=== PATIENT | male | born 1965 | race Caucasian/White ===

== ENCOUNTER 2023-11-09 01:24 | Day surgery (SDC) | payer OTHER, SELFPAY ==
[2023-11-01 10:37] VITALS: BMI 25.9
--- NOTE | 2023-11-07 10:11 | SUR.PREOP ---
Patient called regarding upcoming procedure. Reviewed preop instructions, appointment times, and procedure prep.
[2023-11-09 10:00] VITALS: BP 123/73; PULSE 80; RESP 16; TEMP 36.1; O2SAT 100; BMI 25.0
[2023-11-09] MEDS: LACTATED RINGERS 1,000 ML 150 ML IV CONT (10:26)
--- NOTE | 2023-11-09 10:59 | P.PNAN_ITS ---
Anes - Initial Pre Proc Eval Procedure: Operation Date: 11/09/23 11:30 Proposed Procedures p Colonoscopy - Dwayne Gibson MD Date/Time: 11/09/23 10:59 Surgeon: Dwayne Gibson MD Pre Op Diagnosis: Other fecal abnormalities Patient Data Age: 58 Gender: M Height: 1.7 m Weight: 72.5 kg Last Vital Signs Temp 97.0 F L 11/09/23 10:00 Pulse 80 11/09/23 10:00 Resp 16 11/09/23 10:00 BP 123/73 11/09/23 10:00 Pulse Ox 100 11/09/23 10:00 O2 Del Method Room Air 11/09/23 10:00 Allergies Allergy/AdvReac Type Severity Reaction Status Date / Time hydrocodone AdvReac Severe Nausea and Verified 11/09/23 10:09 Vomiting Home Medications Medication Instructions Recorded Confirmed Type levothyroxine 137 mcg tablet 137 mcg PO DAILY #90 tabs 10/10/23 11/09/23 Rx Patient hx anesthesia problems: none Family hx anesthesia problems: none Results Review: All pre-operative results and documents have been reviewed as part of the pre- operative evaluation. [facility] Past Medical History Medical History Encounter for other specified surgical aftercare Non-recurrent bilateral inguinal hernia without obstruction or gangrene Family History Family History Father Cancer Mother Cancer Diabetes mellitus Sibling Cancer Diabetes mellitus Other Family history of malignant neoplasm Social History Social History Smoking packs per day: 1 Smoking cigarettes per day: 20.0 Smoking status: Current every day smoker Tobacco type: cigarettes Second hand tobacco smoke exposure: No Alcohol intake: current Drinks per week: 2 Alcohol use details: occasional; bourbon Substance use: never Substance use type: does not use Living arrangements: with family Occupation/Education: occupation 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 [employer] Gender identity (if verbalized by the patient): Male Sexual Orientation (if Verbalized by the Patient): Straight or Heterosexual Spiritual care concerns: No Anes - Eval Final PreProcedure Day of Procedure 11/09/23 10:59 Patient weight: normal Heart: regular rate and rhythm Lungs: clear to auscultation Airway: Mallampati scale class II Neurological: alert and oriented Last oral intake: >/= 8 hours ASA classification: II Emergent: no Anesthetic plan: proceed Anesthesia type and monitoring: general GIVS and standard monitoring Results Review: All pre-operative results and documents have been reviewed as part of the pre- operative evaluation. Informed Consent: The patient's anesthetic plan and its attendant risks and benefits were discussed with the patient/family/POA. Questions were solicited and answers provided to the satisfaction of the patient/family/POA.
--- NOTE | 2023-11-09 11:08 | PM.HPGS ---
History of Present Illness History of Present Illness Consent: Risks, benefits, and alternatives have been discussed and questions answered. Patient agrees to proceed with procedure. Chief complaint: Other fecal abnormalities Narrative: Valdo Whittington is a 58 year old male here for first colonoscopy, noted urgency and loose stools for ~ 8 months Review of Systems Review of Systems: All systems reviewed & are unremarkable except as noted in HPI and below PMFSH Past Medical History Medical History (Updated 11/09/23 @ 11:09 by Dwayne Gibson MD) Encounter for other specified surgical aftercare Loose stools Non-recurrent bilateral inguinal hernia without obstruction or gangrene Family History Family History Father Cancer Mother Cancer Diabetes mellitus Sibling Cancer Diabetes mellitus Other Family history of malignant neoplasm Social History Social History Smoking packs per day: 1 Smoking cigarettes per day: 20.0 Smoking status: Current every day smoker Tobacco type: cigarettes Second hand tobacco smoke exposure: No Alcohol intake: current Drinks per week: 2 Alcohol use details: occasional; bourbon Substance use: never Substance use type: does not use Living arrangements: with family Occupation/Education: occupation 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 [employer] Gender identity (if verbalized by the patient): Male Sexual Orientation (if Verbalized by the Patient): Straight or Heterosexual Spiritual care concerns: No Meds Home Medications and Allergies Home Medications Medication Instructions Recorded Confirmed Type levothyroxine 137 mcg tablet 137 mcg PO DAILY #90 tabs 10/10/23 11/09/23 Rx Allergies Allergy/AdvReac Type Severity Reaction Status Date / Time hydrocodone AdvReac Severe Nausea and Verified 11/09/23 10:09 Vomiting Vital Signs Vital Signs - 24 hr 11/09/23 10:00 Temperature 97.0 F L Pulse Rate 80 Respiratory Rate 16 Blood Pressure 123/73 Pulse Oximetry 100 Oxygen Delivery Room Air Exam Const: General: comfortable and no acute distress HENMT: Face/Nose/Sinus: Normal nares present Eyes: General: appearance normal, both eyes and all related structures Neck: Neck: no JVD Resp: Auscultation: clear to auscultation bilaterally Cardio: Rate: regular rate Rhythm: regular rhythm GI: Inspection: non-distended GI Palp: Yes Soft to palpation Skin: General skin exam: normal color Neuro: General: gait normal Speech: normal speech Extrem: General: normal to inspection Psych: Mental Status: mental status grossly normal Assessment and Plan Assessment and plan (1) Loose stools: Code(s): R19.5 - Other fecal abnormalities Status: Acute Assessment and Plan: colonoscopy
[2023-11-09 11:26] VITALS: BP 103/72; PULSE 80; RESP 15; O2SAT 99
[2023-11-09 11:36] VITALS: BP 112/75; PULSE 79; RESP 20; O2SAT 100
[2023-11-09 11:46] VITALS: BP 122/81; PULSE 76; RESP 14; O2SAT 100
== END 2023-11-09 11:52 | disposition home or self-care (01) ==
PROVIDERS: PCP Nurse Practitioner Family; Visit Provider Internal Medicine Gastroenterology
PROC: 0DJD8ZZ Inspection of Lower Intestinal Tract, Via Natural or Artificial Opening Endoscopic (ICD-10-PCS; CPT 45378; principal; 2023-11-09 11:30)
DX: K63.5 Polyp of colon (principal); K64.8 Other hemorrhoids; F17.210 Nicotine dependence, cigarettes, uncomplicated
CPT/HCPCS: 45385; 45380; 88305; J2704; J7120

== ENCOUNTER 2025-01-23 08:15 | Outpatient (CLI) | payer OTHER, SELFPAY ==
--- NOTE | 2025-01-23 08:43 | ECHO_ITS ---
Patient Info Name: Valdo Whittington Age: 59 years : 1965 Gender: Male Ht: 67 in Wt: 165 lbs BSA: 1.89 m2 HR: 76 bpm BP: 133 / 90 mmHg Technical Quality: Good Exam Date: 01/23/2025 8:52 AM Patient Status: O Admit Date: 01/23/2025 Exam Type: CA echo doppler color flow Complete two-dimensional, color flow and Doppler transthoracic echocardiogram is performed. Strain analysis performed. Ui Ux Engineer: Felipa Eaton Attending Provider: Alessandra Lujan Summary 1. Complete two-dimensional, color flow and Doppler transthoracic echocardiogram is performed. 2. Left ventricular chamber dimension is normal. 3. Left ventricular systolic function is normal, estimated at 60-65. 4. The left ventricular diastolic function is normal. 5. Global longitudinal strain is normal at -18.0%. 6. E/e' 7 is not elevated. 7. There is trace aortic valve regurgitation. 8. There is trace mitral valve regurgitation. 9. There is trace tricuspid valve regurgitation. 10. No pulmonary hypertension, estimated pulmonary arterial systolic pressure is 28 mmHg. 11. There is trace pulmonic regurgitation. Left Ventricle E/e' 7 is not elevated. Left ventricular chamber dimension is normal. Left ventricular systolic function is normal, estimated at 60-65. The left ventricular diastolic function is normal. Global longitudinal strain is normal at -18.0%. Right Ventricle Right ventricular chamber dimension is normal. Right ventricular systolic function is normal. Left Atria Left atrial chamber dimension is normal. Right Atria Right atrial chamber dimension is normal. Aortic Valve The aortic valve is trileaflet. There is no aortic valve stenosis. There is trace aortic valve regurgitation. Pulmonic Valve There is trace pulmonic regurgitation. Mitral Valve There is no mitral valve stenosis. There is trace mitral valve regurgitation. No mitral valve prolapse. Tricuspid Valve There is trace tricuspid valve regurgitation. No pulmonary hypertension, estimated pulmonary arterial systolic pressure is 28 mmHg. Pericardium/Pleural There is no pericardial effusion. Inferior Vena Cava Normal inferior vena cava with >50% collapse upon inspiration consistent with normal right atrial pressure, 5 mmHg. Aorta The aortic root size at the sinus of Valsalva is normal. Left Ventricular Outflow Tract Name Value Normal LVOT 2D LVOT Diameter 2.1 cm LVOT Doppler LVOT Peak Velocity 123 cm/s LVOT Peak Gradient 6 mmHg LVOT Mean Gradient 3 mmHg LVOT VTI 23 cm LVOT VTI/AV VTI Ratio 0.9 LVOT Stroke Volume 80 ml LVOT CO 6.0 l/min LVOT CI 3.1 l/min/m2 Pulmonic Valve Name Value Normal RVOT Doppler RVOT Peak Velocity 71 cm/s RVOT Peak Gradient 2 mmHg PV Doppler PV Peak Velocity 107 cm/s PV Peak Gradient 5 mmHg Mitral Valve Name Value Normal MV Diastolic Function MV E Peak Velocity 70 cm/s MV A Peak Velocity 66 cm/s MV E/A 1.1 MV Decel Time (PW) 174 ms Tricuspid Valve Name Value Normal TV Regurgitation Doppler TR Peak Velocity 241 cm/s TR Peak Gradient 23 mmHg Estimated PAP/RSVP RA Pressure 5 mmHg <=5 PA Systolic Pressure 28 mmHg <36 RV Systolic Pressure 28 mmHg <36 Aorta Name Value Normal Ascending Aorta Ao Root Diameter (MM) 2.8 cm Ao Root Diam Index (MM) 1.5 cm/m2 Aortic Valve Name Value Normal AV Doppler AV Peak Velocity 133 cm/s AV Peak Gradient 7 mmHg AV Mean Gradient 4 mmHg AV VTI 26 cm AV Area (Cont Eq VTI) 3.1 cm2 >=3.0 AV Area (Cont Eq Neri) 3.3 cm2 AV DI (Neri) 0.92 AV Regurgitation 2D LVOT Area 3.5 cm2 Ventricles Name Value Normal LV Dimensions 2D/MM IVS Diastolic Thickness (2D) 0.6 cm 0.6-1.0 IVS Diastole Thickness (MM) 0.9 cm 0.6-1.0 LVID Diastole (2D) 4.0 cm 4.2-5.8 LVID Diastole (MM) 4.9 cm 4.2-5.8 LVIW Diastolic Thickness (2D) 0.9 cm 0.6-1.0 LVIW Diastolic Thickness (MM) 0.7 cm 0.6-1.0 LVID Systole (2D) 2.5 cm 2.5-4.0 LVID Systole (MM) 3.3 cm 2.5-4.0 LVOT Diameter 2.1 cm LV Mass (2D Cubed) 90.10 g 88.00-224.00 LV Mass Index (2D Cubed) 48 g/m2 49-115 Relative Wall Thickness (2D) 0.47 <=0.42 LV Mass (MM Cubed) 134.10 g 88.00-224.00 LV Mass Index (MM Cubed) 71 g/m2 49-115 Relative Wall Thickness (MM) 0.29 LV Fractional Shortening/Ejection Fraction 2D/MM LV Fractional Shortening (2D) 38 % 25-43 LV Fractional Shortening (MM) 34 % 25-43 LV EF (MM Teichholz) 63 % LV EF (2D Teichholz) 69 % LV Diastolic Volume (4C MOD) 65 ml LV EF (4C MOD) 63 % LV Diastolic Volume (2C MOD) 76 ml LV EF (2C MOD) 57 % LV Diastolic Volume (BP MOD) 71 ml 62-150 LV Diastolic Volume Index (BP MOD) 37 ml/m2 34-74 LV Systolic Volume (BP MOD) 28 ml 21-61 LV Systolic Volume Index (BP MOD) 15 ml/m2 11-31 LV EF (BP MOD) 60 % 52-72 LV Diastolic Length (4C) 8.2 cm LV Systolic Length (4C) 6.8 cm LV Stroke Volume (4C MOD) 40 ml Atria Name Value Normal LA Dimensions LA Dimension (MM) 3.5 cm 3.0-4.0 LA Volume (4C A-L) 42 ml LA Volume (BP A-L) 46 ml RA Dimensions RA Systolic Major [place] Length (4C) 4.6 cm 2.1-2.7 RA Area (4C) 14.8 cm2 <=18.0 EchoPAC Name Value Normal AutoEF LVCO_BiP_Q (Qsys3XUV) 4.3 l/min LVEF_BiP_Q (Dvnm2JNN) 54 % LVSV_BiP_Q (Gocp4LQE) 58 ml LVVED_BiP_Q (Xzjc5AHP) 107 ml LVVES_BiP_Q (Oxhc3QYR) 49 ml HR_4Ch_Q (Keed3DXI) 75 bpm LVCO_4Ch_Q (Lqxc1UAY) 3.7 l/min LVEF_4Ch_Q (Ksej8MGD) 54 % LVLd_4Ch_Q (Avxo7YAD) 8.6 cm LVLs_4Ch_Q (Bosc2DZK) 7.2 cm LVSV_4Ch_Q (Ocmx4XNF) 49 ml LVVED_4Ch_Q (Fjnu0VIT) 92 ml LVVES_4Ch_Q (Ovzf1VKD) 43 ml HR_2Ch_Q (Qgdm5BGF) 72 bpm LVCO_2Ch_Q (Euww2TMD) 4.8 l/min LVEF_2Ch_Q (Brae0EQS) 54 % LVLd_2Ch_Q (Fiht0YSK) 9.1 cm LVLs_2Ch_Q (Ytrv4SGF) 7.5 cm LVSV_2Ch_Q (Jnmu6ELI) 67 ml LVVED_2Ch_Q (Ndqx6WZW) 125 ml LVVES_2Ch_Q (Zibx3PSE) 58 ml GRIS LV Apical Anterior Longitudinal Strain (GRIS) -16.0 % LV Apical Anteroseptal Longitudinal Strain (GRIS) -18.8 % LV Apical Inferior Longitudinal Strain (GRIS) -26.3 % LV Apical Lateral Longitudinal Strain (GRIS) -19.4 % LV Apical Posterior Longitudinal Strain (GRIS) -14.0 % LV Apical Septal Longitudinal Strain (GRIS) -27.2 % AV Closure (GRIS) 369 ms LV Basal Anterior Longitudinal Strain (GRIS) -18.5 % LV Basal Anteroseptal Longitudinal Strain (GRIS) -13.9 % LV Basal Inferior Longitudinal Strain (GRIS) -18.8 % LV Basal Anterolateral Longitudinal Strain (GRIS) -18.9 % LV Basal Inferolateral Longitudinal Strain (GRIS) -19.5 % LV Basal Inferoseptal Longitudinal Strain (GRIS) -13.0 % LV Global Longitudinal Strain (2C GRIS) -18.8 % LV Global Longitudinal Strain (4C GRIS) -18.5 % LV Global Longitudinal Strain (APLAX GRIS) -16.8 % LV Global Longitudinal Strain (GRIS) -18.0 % LV Mid Anterior Longitudinal Strain (GRIS) -16.4 % LV Mid Anteroseptal Longitudinal Strain (GRIS) -21.6 % LV Mid Inferior Longitudinal Strain (GRIS) -19.8 % LV Mid Anterolateral Longitudinal Strain (GRIS) -16.6 % LV Mid Inferolateral Longitudinal Strain (GRIS) -14.8 % LV Mid Inferoseptal Longitudinal Strain (GRIS) -19.6 % Report Signatures
== END 2025-01-23 08:16 | disposition home or self-care (01) ==
PROVIDERS: PCP Nurse Practitioner Family; Visit Provider Nurse Practitioner Family
DX: I34.1 Nonrheumatic mitral (valve) prolapse (principal)
CPT/HCPCS: 93306

== ENCOUNTER 2025-05-04 07:40 | Emergency (ER) | payer OTHER, SELFPAY ==
--- NOTE | ~2025-05-04 | US_ITS ---
EXAM: US scrotum doppler - 05/04/2025 8:59 CDT HSITORY: 60 years old Male with R testicular pain, post; relief w/ elevation TECHNIQUE: Real-time sonographic and color Doppler images of the scrotum were obtained. Spectral waveform analysis was performed. COMPARISON: None. FINDINGS: RIGHT: Right testes measures: 5.1 x 2.6 x 3.5 Homogeneous echotexture with normal arterial and venous flow. No focal mass. The right epididymis is not clearly visualized. No evidence of varicocele or hydrocele. LEFT: Left testicle measures: 5.8 x 2.7 x 3.3. Homogeneous echotexture with normal arterial and venous flow. 0.4 x 0.6 x 0.3 cm testicular appendage. 0.5 x 0.4 x 0.7 cm cyst in the tail of the epididymis. No evidence of varicocele. Small left hydrocele. IMPRESSION: 1. Right epididymis not clearly visualized. 2. Left epididymal head cyst. Small left hydrocele, as above. Reviewed, dictated and finalized at location N.
--- NOTE | ~2025-05-04 | CT_ITS ---
Valdo Whittington EXAMINATION: CT abdomen pelvis w con COMPARISON: None HISTORY: RLQ abd pain; localized McBurney TECHNIQUE: Axial images were obtained through the abdomen, pelvis post administration of IV contrast. Oral contrast was also administered. Coronal reconstruction images were obtained from the axial views. CT scan performed using dose optimization techniques including the following automated exposure control; adjustment of mA and/or kV; use of iterative reconstruction technique. Automatic exposure control was used to reduce radiation dose. Permanent radiation dose record is archived to PACS. FINDINGS: CT abdomen: LUNG BASES: The lung bases are clear. The visualized portions of the heart and pericardium are unremarkable. LIVER: Unremarkable, liver contours intact, no lesions. SPLEEN: Unremarkable. KIDNEYS: Right Kidney: Unremarkable. No calculi. No hydronephrosis. Left Kidney: Unremarkable. No calculi. No hydronephrosis ADRENAL GLANDS: Unremarkable. PANCREAS: Unremarkable. GALLBLADDER/BILIARY: Unremarkable. No biliary dilatation. STOMACH AND ESOPHAGUS: Visualized stomach and esophagus within normal limits. BOWEL/MESENTERY: Moderate fecal content, no colitis or diverticulitis. No stranding within the mesentery. No thickened or dilated loops of small bowel. Appendix not identified, no inflammation surrounding the cecum. ADENOPATHY/RETROPERITONEUM: No lymphadenopathy. AORTA/VASCULATURE: Normal caliber aorta. FREE FLUID OR FREE AIR: None. CT pelvis: SOLID ORGANS/REPRODUCTIVE: Unremarkable. BLADDER: Within normal limits. OSSEOUS STRUCTURES: No acute osseous abnormality.No suspicious lesions. OVERLYING SOFT TISSUES: Small bilateral fat-containing inguinal hernia. IMPRESSION: 1. No acute intra-abdominal process. The appendix is not identified however there is no evidence of acute appendicitis. If pain persists repeat exam with oral contrast is suggested Reviewed, dictated and finalized at location A. IMPRESSION: 1. No acute intra-abdominal process. The appendix is not identified however the re is no evidence of acute appendicitis. If pain persists repeat exam with oral contrast is suggested
[2025-05-04 07:47] VITALS: BP 127/88; PULSE 81; RESP 14; TEMP 36.5; O2SAT 100
[2025-05-04 08:36] LABS: Add Urine Microscopic? NO; Appearance Urine Clear (Clear); Glucose Urine UA Negative (Negative); Leukocyte Esterase Ur Negative LEU/UL (Negative); Nitrate Urine Negative (Negative); Specific Grav Ur 1.011 (1.001-1.035)
--- NOTE | 2025-05-04 08:43 | ED_ITS ---
HPI - Male Genitourinary General Chief complaint: Urogenital-Male Stated complaint: right groin, testicular pain Time Seen by Provider: 05/04/25 08:15 Source: patient Mode of arrival: ambulatory Limitations: no limitations History of Present Illness HPI Narrative: Patient presents with report of right groin/testicle pain. He also notes that he has been experiencing right lower quadrant pain the past 1 year. Approximately 15 years ago after a vasectomy he was noted to have an aneurysm in required additional intervention although that urologist was in [place] and he no longer follows up with them and does not even know if they are in practice or around. He reports no either the has history of hernia, inguinal, repaired though details unclear. Also history of lymph node excision. He denies any nausea or vomiting. He will take ibuprofen p.r.n. as well as the occasional Excedrin although this is intermittent. He denies any dysuria, hematuria, urgency or frequency he states that his commented that she feels like his urine has an odor and discoloration after they have intercourse. No history of STIs. He denies any fevers or chills although has been experiencing night sweats. Denies any drainage or discharge. Denies any diarrhea constipation. He denies any bloody stools although occasionally when he wipes he will some the tissue paper. He states he has been told he has hemorrhoids cyst cause. He denies any weight loss. His last colonoscopy was approximately 2-3 years ago. Related Data Allergies Allergy/AdvReac Type Severity Reaction Status Date / Time hydrocodone AdvReac Severe Nausea and Verified 05/05/25 09:39 Vomiting PMFSH Past Medical History Medical History (Updated 05/06/25 @ 16:55 by Hilda Kiran MD) Inguinal hernia Loose stools Non-recurrent bilateral inguinal hernia without obstruction or gangrene Encounter for other specified surgical aftercare Surgical History Surgical History (Updated 05/06/25 @ 16:57 by Hilda Kiran MD) Hx of colonoscopy approx H/O lymph node excision Status post vasectomy complicated by aneurysm; urologist in [place] - approx 2009 Family History Family History ) Father Cancer leukemia Mother Cancer multiple myeloma Diabetes mellitus Sibling Cancer Diabetes mellitus Other Family history of malignant neoplasm Social History Social History (Updated 05/06/25 @ 16:55 by Hilda Kiran MD) Social History: 05/04/25 very confident with medical forms Smoking packs per day: 1 Smoking cigarettes per day: 20.0 Smoking status: Former smoker Tobacco type: cigarettes Second hand tobacco smoke exposure: No Alcohol intake: current Drinks per week: 2 Alcohol use details: occasional; bourbon Substance use: never Substance use type: does not use Lack of Transportation: No Lack of Food: Never True Current Housing: I Have Housing Concerned About Future Housing: No Difficulty Paying Gas/Electric Bills: No Difficulty Paying for Meds: No Currently Unemployed: No Education: High School Diploma/GED Difficulty w/ Childcare or Family Care: No Living arrangements: with family Additional living arrangements comments: Occupation/Education: occupation 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 HEAD: Normocephalic, atraumatic. EYES: Non injected, non icteric ENT: Nares clear, no rhinorrhea or epistaxis. Gross auditory acuity intact. NECK: Supple. No meningismus. CHEST: Speaking in full sentences. No respiratory distress. HEART: Regular rate and rhythm. . ABDOMEN: Soft, nondistended. No rigidity or guarding. No tenderness to palpation thoughtout abdomen on initial assesment however he does seem to have localized tenderness at McBurney point, questionable localized peritonitis. EXTREMITIES: Normal range of motion. No lower extremity edema. SKIN: Warm, dry, no rash. Vitiligo. : Normal external genitalia. No significant inguinal lymphadenopathy enlargement. Strong femoral pulses. Normal penis without urethral discharge/bleeding at the meatus. Experiences some relief with elevation of the right scrotum. No significant scrotal mass/swelling. No tenderness to palpation of testes or bilateral epididymi NEURO: No focal deficits. Alert and oriented. Answering questions. Following commands. Normal speech without aphasia or dysarthria. PSYCH: Normal mood and affect. Course Vital Signs Vital signs: Vital Signs Temperature 97.7 F 05/04/25 07:47 Pulse Rate 81 05/04/25 07:47 Respiratory Rate 14 05/04/25 07:47 Blood Pressure 127/88 05/04/25 07:47 Pulse Oximetry 100 05/04/25 07:47 Oxygen Delivery Room Air 05/04/25 07:47 Temperature 97.7 F 05/04/25 07:47 Pulse Rate 77 05/04/25 11:23 Respiratory Rate 16 05/04/25 11:23 Blood Pressure 120/86 05/04/25 11:23 Pulse Oximetry 99 05/04/25 11:23 Oxygen Delivery Room Air 05/04/25 07:47 MDM - Male Genitourinary MDM Narrative Medical decision making narrative: Patient presents with right groin/testicle pain. In addition he has had right lower quadrant pain going on for approximately 1 year. He is status post vasectomy which she states was complicated by an aneurysm. This was 15 years ago he does not follow regularly with a urologist. That procedure had been performed in [place]. In the emergency department they are afebrile with vital signs within normal limits. Urinalysis without signs of infection. CBC is without anemia. Patient had noted that he occasionally experiences pain with wiping although this has been attributed to hemorrhoids which he states he was diagnosed with and for this reason and because he is not anemic will defer rectal examination at this time. No leukocytosis. Chemistry unremarkable. Appendix is not visualized easily on CT scan. given that it is not enlarged enough to even be found with any confidence and he is otherwise without leukocytosis, reasonable to suspect that this is not the cause of his symptoms, though it was noted that if persists visitor services assistant symptoms, CT with oral contrast could be considered. Discussed patient's workup with him which has not revealed a cause of his symptoms. I did note the findings on the left side. I also noted that there was notation at CT you with oral contrast could be performed although unlikely to be of used today because of the contrast load already in his system. In addition, low suspicion for appendicitis given fact that it could not be easily visualized. Nevertheless, I did note that I felt to be very important that he follow up for his issues. He should start with his primary care physician but I also encouraged him to call and make an appointment as soon as possible though see a urologist. I am concerned about his non described pain without clear etiology as well as the fact that he mention that he has been having night sweats. Provided referral contact information for Urology. Based on my independent interpretation of CT scan, I also believe that he is constipated and this may be a cause of some of his abdominal symptoms. Encouraged hydration, fiber intake, and prescribed bowel regimen in the interim. I noted the uncertainty of his workup and stressed the need for follow-up. He verifies understanding. Otherwise stable for DC. Differential Diagnosis Differential diagnosis: Likely urinary tract infection, epididymitis, prostatitis and other ( Malignancy; appendicitis, constipation, epiploic appendagitis; hernia/inguinal hernia; hydrocele, varicocele) Lab Data Attestation: I reviewed the patient's lab results. 05/04/25 09:00 05/04/25 09:00 Labs: Lab Results 05/04/25 05/04/25 Range/Units 08:13 09:00 WBC 4.5 (4.5-10.0) K/mm3 RBC 4.61 (4.6-6.20) M/mm3 Hgb 14.0 (14.0-18.0) g/dL Hct 42.7 (42.0-52.0) % MCV 92.6 (80-100) fl MCH 30.4 (26-34) pg MCHC 32.8 (32-36) g/dl RDW 14.0 (11.5-14.5) % Plt Count 244 (150-375) k/mm3 MPV 9.6 (7.4-10.4) fl Immature Gran % (Auto) 0.2 (0-0.5) % Neut % (Auto) 55.5 (45.5-73.1) % Lymph % (Auto) 30.2 (18.3-44.2) % [place] % (Auto) 9.9 H (2.6-8.5) % Eos % (Auto) 3.3 (0-4.4) % Baso % (Auto) 0.9 (0.2-1.2) % Lymph # (Auto) 1.37 (0.9-3.2) K/mm3 [place] # (Auto) 0.5 (0.1-0.6) K/mm3 Eos # (Auto) 0.2 (0-0.3) K/mm3 Baso # (Auto) 0.0 (0.0-0.1) K/mm3 Abs Immat Gran (auto) 0.01 (0.00-0.031) K/mm3 Absolute Neuts (auto) 2.5 (1.3-6.7) K/mm3 Absolute Nucleated RBC 0.000 (0.0-0.012) K/mm3 Nucleated RBC % 0.0 (0.0-0.2) % PT 14.6 (11.1-14.7) Seconds INR 1.2 APTT 27.3 (22.3-36.8) Seconds Sodium 138 (137-145) mmol/L Potassium 4.3 (3.4-5.0) mmol/L Chloride 103 (98-107) mmol/L Carbon Dioxide 27 (22-30) mmol/L Anion Gap 8 (4-12) mmol/L BUN 14 (9-20) mg/dL Creatinine 1.08 (0.7-1.3) mg/dL Estim Creat Clear Calc 60 ml/min Estimated GFR > 60 (59 - ) Glucose 101 (65-110) mg/dL Calcium 9.1 (8.4-10.2) mg/dL Total Bilirubin 0.3 (0.2-1.3) mg/dL AST 33 (17-59) U/L ALT 26 (6-50) U/L Alkaline Phosphatase 65 (38-126) U/L Total Protein 8.0 (6.3-8.2) g/dL Albumin 4.6 (3.5-5.1) g/dL Urine Color Yellow (Yellow) Urine Appearance Clear (Clear) Urine pH 7.5 (5.0-9.0) Ur Specific [place] 1.011 (1.001-1.035) Urine Protein Negative (Negative) mg/dL Urine Glucose (UA) Negative (Negative) mg/dL Urine Ketones Negative (Negative) mg/dL Ur Blood (Man) Negative (Negative) Urine Nitrate Negative (Negative) Urine Bilirubin Negative (Negative) Urine Urobilinogen 0.2 (<2.0) mg/dL Leukocyte Esterase Rfl Negative (Negative) JENNIFER/UL C. trachomatis (PCR) Not detected (NOT DETECTE) N. gonorrhoeae (PCR) Not detected (NOT DETECTE) T. vaginalis (PCR) Not detected (NOT DETECTE) Imaging Data Attestation: I personally reviewed and interpreted this imaging study as follows: My impression: there is some slight stool burden in the right hemipelvis on my independent interpretation Radiologist's impression: Impressions Scrotum Ultrasound 05/04/25 09:51 IMPRESSION: 1. Right epididymis not clearly visualized. 2. Left epididymal head cyst. Small left hydrocele, as above. Abdomen/Pelvis CT 05/04/25 10:26 IMPRESSION: 1. No acute intra-abdominal process. The appendix is not identified however there is no evidence of acute appendicitis. If pain persists repeat exam with oral contrast is suggested Discharge Plan Discharge Clinical Impression: Cyst of epididymis determined by ultrasound, Left hydrocele, Right lower quadrant abdominal pain, Right testicular pain Patient Disposition: Home Condition: Stable Instructions: Antibiotic Form, High Fiber Diet (ED), Abdominal Pain (ED), Scrotal Pain (ED) Additional Instructions: No findings on the ultrasound or CT of your abdomen and pelvis in the right lower quadrant of your abdomen or in your right scrotum/ testicle. You did have evidence of a hydrocele as well as an epididymal cyst but these were in your left scrotum/testicle. your other lab work was also reassuring. it is important that you follow-up with a urologist however, especially if symptoms continue. You can either follow-up with the urologist you previously saw in another city. Alternatively, the name of a urologist is listed below whom you can call to schedule an appointment. Follow-up with primary care physician as well. You had a bit of stool burden in the right lower part of your colon on my independent interpretation of CT scan. Miralax can help with if you still have pain and not having regular bowel movements (constipation). Acetaminophen/Tylenol (maximum 4000 mg per day) is safe to take with NSAIDs (ibuprofen/Motrin) for pain relief. return to the Emergency Department immediately if the pain worsens, develops fever, persistent and uncontrolled vomiting, or for any new symptoms or concerns. Patient Language: Telugu Prescriptions: New ibuprofen 600 mg tablet 600 mg PO TID PRN (Reason: pain) Qty: 30 0RF acetaminophen 500 mg capsule 1,000 mg PO Q6H PRN (Reason: pain) Qty: 30 0RF polyethylene glycol 3350 [Miralax] 17 gram/dose powder 17 g PO DAILY Qty: 119 0RF No Action nicotine 14 mg/24 hr patch 24 hour 1 patch transdermal DAILY Qty: 14 0RF levothyroxine [Synthroid] 125 mcg tablet 125 mcg PO DAILY Qty: 90 0RF Follow-up/Referrals: Servando Worthington MD [Physician, Urology] Adina Russ APN-C [Primary Care Provider, Family Practice] Stand Alone Forms: Work/School Release IP Time of Disposition: 11:11
--- OUTSIDE RECORDS SUMMARY | 2025-05-04 08:50 | XMS_ITS | Clinical Summary ---
Author Organization [facility] Address [facility] [place] [address] Care Team Providers Care Boiler Blower Name Role Phone Louise Simmons PA-C Primary Care Provider [phone] Allergies No known active allergies Medications levothyroxine (SYNTHROID) 137 MCG tablet Take 1 tablet (137 mcg total) by mouth daily. 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 Sex Male 8:30 PM CDT Gender Identity Not on file Sexual Orientation Not on file Last Filed Vital Signs Vital Sign Reading Time Taken Comments Blood Pressure 117/77 09/20/2024 10:03 AM SLASHER RUNNER Pulse 87 09/20/2024 10:03 AM SLASHER RUNNER Temperature 37.2 C (98.9 F) 09/20/2024 10:03 AM SLASHER RUNNER Respiratory Rate 12 09/20/2024 10:03 AM SLASHER RUNNER Oxygen Saturation 99% 09/20/2024 10:03 AM SLASHER RUNNER Inhaled Oxygen Concentration - - Weight 75.3 kg (166 lb) 09/20/2024 10:03 AM SLASHER RUNNER Height 170.2 cm (5' 7) 09/20/2024 10:03 AM SLASHER RUNNER Body Mass Index 26 09/20/2024 10:03 AM SLASHER RUNNER Plan of Treatment Health Maintenance Due Date Last Done Comments Colorectal Cancer Screening Colonoscopy (10 Years) 1965 Annual Physical 1968 Hepatitis C 1983 Pneumococcal Vaccine: 50+ Years (1 of 1 - PCV) 2015 Zoster Vaccines (1 of 2) 2015 DTaP, Tdap and Td Vaccines ( 2 - Tdap) 08/20/2016 08/20/2006 COVID-19 Vaccine (4 - 2024-2 6 season) 2025 09/02/2021, 11/18/2020, 10/28/2020 RSV Immunization or 60+ Years (1 - 1-dose 75+ series) 2040 PHQ-2 (Physician [place]) Completed 09/20/2024 Meningococcal B Vaccine Aged Out No l onger eligible based on patient's age to complete this topic Meningococcal Vaccine Aged Out No haley enrique eligible based on patient's age to complete this topic RSV Immunizations Under 20 Months Aged Out No longer eligible b ased on patient's age to complete this topic Insurance [employer] Care Teams Boiler Blower Relationship Specialty Start Date End Date Louise Simmons PA-C [address] [place] [address] [address] [place] [address] PCP - General PHYSICIAN COLD FOOD PACKER 04/06/22
[2025-05-04] MEDS: ACETAMINOPHEN 500 MG TABLET 1000 MG PO (09:00)
[2025-05-04 09:07] LABS: Hematocrit 42.7 % (42.0-52.0); Hemoglobin 14.0 g/dL (14.0-18.0); Immature Granulocyte Percent A 0.2 % (0-0.5); Lymphocytes Absolute Auto 1.37 K/mm3 (0.9-3.2); Mean Corpuscular HGB Conc 32.8 g/dl (32-36); Mean Corpuscular Hemoglobin 30.4 pg (26-34); Mean Corpuscular Volume 92.6 fl (80-100); Nucleated Red Blood Cells Absolute Auto 0.000 K/mm3 (0.0-0.012); Nucleated Red Blood Cells Perc 0.0 % (0.0-0.2); Platelet Count Result 244 k/mm3 (150-375); Red Blood Count 4.61 M/mm3 (4.6-6.20); White Blood Count 4.5 K/mm3 (4.5-10.0)
[2025-05-04 09:30] LABS: Alanine Aminotransferase 26 U/L (6-50); Albumin Level 4.6 g/dL (3.5-5.1); Alkaline Phosphatase 65 U/L (38-126); Anion Gap 8 mmol/L (4-12); Aspartate Amino Transferase 33 U/L (17-59); Bilirubin,Total 0.3 mg/dL (0.2-1.3); Blood Urea Nitrogen 14 mg/dL (9-20); Calcium 9.1 mg/dL (8.4-10.2); Carbon Dioxide 27 mmol/L (22-30); Chloride 103 mmol/L (98-107); Estimated CRCL calculation 60 ml/min; Estimated Glomerular Filt Rate > 60; Glucose 101 mg/dL (65-110); Potassium 4.3 mmol/L (3.4-5.0); Sodium 138 mmol/L (137-145); Total Protein 8.0 g/dL (6.3-8.2)
[2025-05-04 09:53] LABS: INR 1.2; Prothrombin Time 14.6 Seconds (11.1-14.7)
[2025-05-04 09:54] LABS: Partial Thromboplastin Time 27.3 Seconds (22.3-36.8)
[2025-05-04 10:00] LABS: Trichomonas Vag PCR NOT DETECTED (NOT DETECTE)
[2025-05-04 11:23] VITALS: BP 120/86; PULSE 77; RESP 16; O2SAT 99
== END 2025-05-04 11:24 | disposition home or self-care (01) ==
PROVIDERS: Emergency Provider Student in an Organized Health Care Education/Training Program; PCP Nurse Practitioner Family
DX: N50.3 Cyst of epididymis (principal); N43.3 Hydrocele, unspecified; Z87.891 Personal history of nicotine dependence; Z11.3 Encounter for screening for infections with a predominantly sexual mode of transmission
CPT/HCPCS: 36415; 74177; 76870; 80053; 81003; 85025; 85610; 85730; 87491; 87591; 87661; 93976; 99284; A9270; Q9967